=== PATIENT | male | born 1955 | race Caucasian/White ===

== ENCOUNTER 2018-03-06 10:25 | Inpatient (IN) ==
--- NOTE | 2018-03-06 11:08 | Emergency Department Note ---
Disposition Clinical Impression: Pleural effusion, Bronchiolitis, Acute exacerbation of chronic obstructive airways disease Cancer of right lung Qualifiers: Lung location: unspecified part of lung Qualified Code(s): C34.91 - Malignant neoplasm of unspecified part of right bronchus or lung Disposition: Admitted As Inpatient Condition: Good Referrals: Mariangel Traylor DO [Primary Care Provider] - Forms: ED Satisfaction Letter Time of Disposition: 14:14 SOB HPI - General Chief Complaint: ED Shortness of Breath/Dyspnea Stated Complaint: CESILIA Time Seen by Provider: 03/06/18 10:55 Source: patient, family Mode of arrival: ambulatory Limitations: no limitations Nursing Notes Reviewed: Yes Vital Signs Reviewed: Yes - History of Present Illness This is a 62 year-old male with history of HTN, HLD, IDDM, COPD on 2.5 L home O2 (at night), CAD s/p stent, and lung cancer. He presents with dyspnea, which is chronic but has been worsening for the past 2-3 weeks. The shortness of breath is worse with exertion. Associated with productive cough, and chills, no measured fevers. He was seen at [facility] a few weeks ago and completed a course of Levaquin. The lung cancer was diagnosed in 2014, s/p surgery and radiation for brain mets. Last chemo was in 2017. He denies any associated chest pain, unilateral leg pain or swelling. Pt Subjective Complaint: shortness of breath Onset (ago): week(s) (2-3) Severity: moderate Consistency/Duration: gradually worsening Improves with: oxygen, rest Worsens with: exertion Known history of: COPD, other (lung cancer) Associated symptoms: Reports: cough, sputum production. Denies: chest pain, fever, lower extremity pain, hemoptysis Treatment prior to arrival: oxygen, bronchodilator Cough present: Yes Cough Description: Productive Cough Frequency: Intermittent Sputum production: Yes Sputum Amount: Moderate Sputum Color: Green - Related Data Home oxygen amount: CPAP Home Medications Medication Instructions Recorded Confirmed Albuterol Sulfate [Proair Hfa] 1 puff IH Q4H PRN 12/08/15 03/06/18 Citalopram [CeleXA] 40 mg PO DAILY 12/08/15 03/06/18 Fluticasone/Salmeterol [Advair Hfa 8 gm IH BID PRN 12/08/15 03/06/18 230-21 Mcg Inhaler] Furosemide [Lasix] 80 mg PO DAILY 12/08/15 03/06/18 Insulin LISPRO [Humalog] 0 unit SQ AD PRN 12/08/15 03/06/18 Lisinopril [Zestril] 10 mg PO BID 12/08/15 03/06/18 Metoprolol Succinate 100 mg PO BID 12/08/15 03/06/18 Montelukast [Singulair] 10 mg PO DAILY 12/08/15 03/06/18 Multivitamin [Multivitamins] 1 each PO DAILY 12/08/15 03/06/18 Naproxen Sodium [Aleve] 220 mg PO BID PRN 12/08/15 03/06/18 Simvastatin [Zocor] 20 mg PO HS 12/08/15 03/06/18 Tamsulosin [Flomax] 0.4 mg PO DAILY 12/08/15 03/06/18 Insulin Glargine,Hum.rec.anlog 40 units SQ BID 12/15/16 03/06/18 [Tourell Solostar] Dulaglutide [Trulicity] 0.75 mg SQ QWEEK 02/13/17 03/06/18 Empagliflozin [Jardiance] 25 mg PO DAILY 06/08/17 03/06/18 diazePAM [Valium] 5 mg PO BID PRN 06/08/17 03/06/18 HYDROcodone/Acet 10/325 mg [[place]perity 1 - 1.5 tab PO Q6HR PRN 01/18/18 03/06/18 10-325 mg] Previous Rx's Medication Instructions Recorded Esomeprazole Magnesium [Nexium] 40 mg PO DAILY #30 capsule. 03/22/16 Ondansetron [Zofran] 8 mg PO Q8HR #60 tablet 09/05/17 Allergies Allergy/AdvReac Type Severity Reaction Status Date / Time No Known Allergies Allergy Verified 03/06/18 10:30 All systems ED: reviewed and negative except as stated. Constitutional: Reports: chills, weakness (generalized). Denies: fever Cardiovascular: Reports: as per HPI, dyspnea on exertion, edema Respiratory: Reports: as per HPI, cough, dyspnea, sputum production Gastrointestinal: Denies: abdominal pain, vomiting Musculoskeletal: Denies: back pain Neurological: Reports: headache Endocrine: Reports: fatigue Past Medical History - Past Medical History Medical history: Reports: cancer (Lung cancer stage III), COPD, diabetes, hypertension, myocardial infarction Surgical history: Reports: orthopedic, other - Social History Smoking Status: Current every day smoker Smokeless Tobacco Status: No Alcohol use: Reports: none Drug use: Reports: none Physical Exam - General Limitations: no limitations General appearance: alert - Head Head exam: atraumatic, normocephalic - Eye Eye exam: Present: normal appearance - ENT ENT exam: normal exam - Neck Neck exam: Present: normal inspection - Respiratory Respiratory exam: Present: respiratory distress (mild), wheezes, other ( bilateral rhonchi) - Cardiovascular Cardiovascular exam: Present: regular rate, bradycardia - Abdominal Exam Abdominal exam: Present: soft, Non-Tender. Absent: distention - Extremities Exam Extremities exam: Present: pedal edema. Absent: calf tenderness - Neurological Exam Neurological exam: Present: alert, oriented X3. Absent: motor sensory deficit - Psychiatric Psychiatric exam: Present: normal affect, normal mood - Skin Skin exam: Present: warm, dry, intact Course - Reevaluation(s) Reevaluation #1: Patient doing well on bipap. Updated patient and his on diagnostic results. They are in agreement with admission. Time: 14:17 - Consultations Consultation #1: Paged hospitalist Time: 14:17 Consultation #2: Discussed case with Dr. Schwartz, and patient accepted for admission. Time: 14:32 Vital Signs Temperature 98.1 F 03/06/18 10:27 Pulse Rate 57 03/06/18 10:27 Respiratory Rate 18 03/06/18 10:27 Blood Pressure 128/64 03/06/18 10:27 O2 Sat by Pulse Oximetry 90 03/06/18 10:27 Temperature 98.1 F 03/06/18 11:58 Pulse Rate 85 03/06/18 13:23 Respiratory Rate 17 03/06/18 13:23 Blood Pressure 121/64 03/06/18 13:23 O2 Sat by Pulse Oximetry 91 03/06/18 13:23 Oxygen Delivery Oxygen Delivery Bipap Shortness of Breath/Dyspnea - Lab Data Lab results reviewed: Yes I reviewed the patient's lab results. Result diagrams: 03/06/18 10:36 03/06/18 10:36 Lab Results 03/06/18 03/06/18 03/06/18 Range/Units 10:36 10:36 11:00 WBC 8.2 (4.3-11.1) K/mcL RBC 4.92 (4.19-5.50) M/mcL Hgb 15.8 (12.9-16.9) g/dL Hct 47.0 (37.5-50.1) % MCV 95.5 (83.0-100.0) fL MCH 32.1 (28.0-33.3) pg MCHC 33.6 (31.6-35.5) g/dL RDW 14.3 (11.5-14.5) % Plt Count 77 L (140-400) K/mcL MPV 11.5 (9.4-12.4) fL Immature Gran % 0.9 (0-4) % Seg Neutrophils % 84.1 % Lymphocytes % 10.0 % Monocytes % 3.9 % Eosinophils % 0.7 % Basophils % 0.4 % Neutrophils # 6.9 (1.6-8.9) K/mcL Lymphocytes # 0.8 (0.6-4.6) K/mcL Monocytes # 0.3 (0.0-1.3) K/mcL Eosinophils # 0.1 (0.0-0.6) K/mcL Basophils # 0.0 (0.0-0.2) K/mcL Immature Plt Fraction 6.1 (1.1-6.1) % Sodium 139 (136-145) mEq/L Potassium 4.6 (3.5-5.1) mEq/L Chloride 101 (98-107) mEq/L Carbon Dioxide 31 H (23-29) mEq/L BUN 21 (8-23) mg/dL Creatinine 1.22 (0.70-1.30) mg/dL Est GFR ( Amer) > 60 (> 60) Est GFR (Non-Af Amer) 60 (> 60) BUN/Creatinine Ratio 17 (6-26) Glucose 131 H (70-105) mg/dL Calculated Osmolality 293 (280-300) Lactic Acid (0.5-2.2) mmol/L Calcium 9.2 (8.6-10.3) mg/dL Troponin I (< 0.04) ng/mL B-Natriuretic Peptide 212 H (Less than 100) pg/mL 03/06/18 03/06/18 Range/Units 11:09 11:09 WBC (4.3-11.1) K/mcL RBC (4.19-5.50) M/mcL Hgb (12.9-16.9) g/dL Hct (37.5-50.1) % MCV (83.0-100.0) fL MCH (28.0-33.3) pg MCHC (31.6-35.5) g/dL RDW (11.5-14.5) % Plt Count (140-400) K/mcL MPV (9.4-12.4) fL Immature Gran % (0-4) % Seg Neutrophils % % Lymphocytes % % Monocytes % % Eosinophils % % Basophils % % Neutrophils # (1.6-8.9) K/mcL Lymphocytes # (0.6-4.6) K/mcL Monocytes # (0.0-1.3) K/mcL Eosinophils # (0.0-0.6) K/mcL Basophils # (0.0-0.2) K/mcL Immature Plt Fraction (1.1-6.1) % Sodium (136-145) mEq/L Potassium (3.5-5.1) mEq/L Chloride (98-107) mEq/L Carbon Dioxide (23-29) mEq/L BUN (8-23) mg/dL Creatinine (0.70-1.30) mg/dL Est GFR ( Amer) (> 60) Est GFR (Non-Af Amer) (> 60) BUN/Creatinine Ratio (6-26) Glucose (70-105) mg/dL Calculated Osmolality (280-300) Lactic Acid 1.3 (0.5-2.2) mmol/L Calcium (8.6-10.3) mg/dL Troponin I < 0.03 (< 0.04) ng/mL B-Natriuretic Peptide (Less than 100) pg/mL - Radiology Data Radiology results reviewed: Yes I reviewed the patient's radiology results. XR/XR chest 2V IMPRESSION: Vascular congestion. CT/CT angio chest IMPRESSION: No evidence of acute pulmonary embolism. Moderate layering right pleural effusion, increased in size from 01/12/2018. No discrete right lower lobe nodule is evident. There is dependent irregular consolidation in the right lower lobe which may represent (rounded) atelectasis. Continued follow-up is recommended. Bibasilar airway opacification most likely represents mucous plugging. In addition, there are findings of infectious/ inflammatory bronchiolitis particularly involving the left lower lobe. Findings suggest mild interstitial pulmonary edema. Right heart insufficiency. - EKG Data EKG attestation: Yes I reviewed and interpreted this EKG. EKG results narrative: Poor quality tracing. Sinus rhythm with frequent PVCs, bigeminy. No ST elevation or ischemic T wave findings. [place]/QRS: Reports: normal Ectopy: Reports: PVC, bigeminy When compared to previous EKG there are: previous EKG unavailable Interpretation: Reports: nonspecific ST-T wave changes
[2018-03-06] MEDS ORDERED: Isovue-370 500 ML INFUS..BTL IV ONE (11:13)
[2018-03-06 11:27] LABS: Basophils % 0.4 %; Red Cell Distribution Width 14.3 % (11.5-14.5)
[2018-03-06 11:29] LABS: Eosinophils # 0.1 K/mcL (0.0-0.6); Eosinophils % 0.7 %; Hemoglobin 15.8 g/dL (12.9-16.9); Immature Granulocytes % 0.9 % (0-4); Immature Platelets 6.1 % (1.1-6.1); Lymphocytes # 0.8 K/mcL (0.6-4.6); Mean Corpuscular HGB Conc 33.6 g/dL (31.6-35.5); Mean Corpuscular Hemoglobin 32.1 pg (28.0-33.3); Mean Corpuscular Volume 95.5 fL (83.0-100.0); Mean Platelet Volume 11.5 fL (9.4-12.4); Monocytes # 0.3 K/mcL (0.0-1.3); Monocytes % 3.9 %; Neutrophils # 6.9 K/mcL (1.6-8.9); Platelet Count 77 K/mcL (140-400); Red Blood Count 4.92 M/mcL (4.19-5.50); Segmented Neutrophils % 84.1 %
[2018-03-06 11:48] LABS: BUN/Creatinine Ratio 17 (6-26); Blood Urea Nitrogen 21 mg/dL (8-23); Calcium 9.2 mg/dL (8.6-10.3); Carbon Dioxide 31 mEq/L (23-29); Chloride 101 mEq/L (98-107); Glucose 131 mg/dL (70-105); Osmolality,Calculated 293 (280-300); Potassium 4.6 mEq/L (3.5-5.1); Sodium 139 mEq/L (136-145); eGFR For African Americans > 60 (> 60); eGFR For Non-African Americans 60 (> 60)
[2018-03-06] MEDS ORDERED: Ipratropium/Albuterol Neb 3 ML IH ONE (11:50)
[2018-03-06] MEDS ORDERED: Azithromycin 500 MG in D5% in Water 250 ML IVPB ONE (14:13)
[2018-03-06] MEDS ORDERED: cefTRIAXone 2,000 MG in 0.9 % Sodium Chloride Mini Bag 100 ML IVPB ONE (14:13)
[2018-03-06] MEDS ORDERED: Acetaminophen 325 MG TABLET PO PRN (14:26)
[2018-03-06] MEDS ORDERED: Ondansetron 4 MG/2 ML VIAL IVP PRN (14:26)
[2018-03-06] MEDS ORDERED: *HR* OxyCODONE Immed Rel 5 MG TABLET PO PRN (14:26)
[2018-03-06] MEDS ORDERED: *HR* Promethazine 25 MG/ML VIAL IVP PRN (14:26)
[2018-03-06] MEDS ORDERED: Naloxone 0.4 MG/ML INJ IVP PRN (14:26)
[2018-03-06] MEDS ORDERED: Furosemide 40 MG/4 ML VIAL IVP ONE (14:27)
--- NOTE | 2018-03-06 15:09 | IR Procedure Note ---
Date of procedure: 03/06/18 Consent Obtained: Verbal consent, Written consent Timeout: Correct patient and procedure verified, Correct site verified, Time out performed, Skin prep completed Local anesthetic: Lidocaine 1% Indications: Right pleural effusion Procedure Performed: Right thoracentesis Was there an assistant manager quality management present: No Site/Technique: Ultrasound guided right thoracentesis Results/Findings: Thoracentesis performed Estimated blood loss (cc): 2 Complications: None; Tolerated procedure well Post Procedure Treatment Plan: CXR pending Specimen: Moderate pleural effusion
--- NOTE | 2018-03-06 15:23 | Internal Med History&Physical ---
Date of Encounter: 03/06/18 Time of Encounter: 14:45 Internal Medicine - H&P: HPI Chief complaint: Shortness of breath Admitted From: Emergency Dept Plans for Post Hospital Care: Home History of present illness: Mr. Norris is a 62 year old male with known PMH of COPD, Chronic hypoxic resp failure, HTN, HLD , HANNAH uses CPAP, Hypothyroidism, CAD s/p stent, active smoker who had [place] carcinoma of Rt lucinda Dx in 2014 went for Chemo and radiation therapy, also had brain mets now he presented to ER with one week h/o worsening SOB, Cough with greenish expectoration. He also c/o Rt chest wall pain on the lower side. Denied any fever /chills. Denied any recent travel history. Denied any sick contacts at home. Past Med Surg Social Fam HX - Past Medical History Medical history: cancer (Lung cancer stage III), COPD, diabetes, hypertension, myocardial infarction Psychiatric history: no psych history - Past Surgical History Surgical History: orthopedic, other - Social History Smoking Status: Current every day smoker Smokeless Tobacco Status: No Alcohol use: none Drug use: none - Additional Family History Additional family history: Family hsitory reviewed and non contribuitory to current problem. Internal Medicine - H&P: Meds Albuterol Sulfate [Proair Hfa] 1 puff IH Q4H PRN 12/08/15 [History] Citalopram [CeleXA] 40 mg PO DAILY 12/08/15 [History] Fluticasone/Salmeterol [Advair Hfa 230-21 Mcg Inhaler] 8 gm IH BID PRN 12/08/15 [History] Furosemide [Lasix] 80 mg PO DAILY 12/08/15 [History] Insulin LISPRO [Humalog] 8 - 16 unit SQ TID PRN 12/08/15 [History] Metoprolol Succinate 100 mg PO BID 12/08/15 [History] Montelukast [Singulair] 10 mg PO DAILY 12/08/15 [History] Multivitamin [Multivitamins] 1 each PO DAILY 12/08/15 [History] Naproxen Sodium [Aleve] 220 mg PO BID PRN 12/08/15 [History] Simvastatin [Zocor] 20 mg PO HS 12/08/15 [History] Tamsulosin [Flomax] 0.4 mg PO DAILY 12/08/15 [History] Esomeprazole Magnesium [Nexium] 40 mg PO DAILY #30 capsule. 03/22/16 [Rx] Insulin Glargine,Hum.rec.anlog [Tourell Solostar] 40 units SQ BID 12/15/16 [ History] Dulaglutide [Trulicity] 0.75 mg SQ QWEEK 02/13/17 [History] diazePAM [Valium] 5 mg PO BID PRN 06/08/17 [History] Ondansetron [Zofran] 8 mg PO Q8HR #60 tablet 09/05/17 [Rx] HYDROcodone/Acet 10/325 mg [Onyx 10-325 mg] 1 - 1.5 tab PO Q6HR PRN 01/18/18 [ History] Empagliflozin [Jardiance] 10 mg PO DAILY 03/06/18 [History] Lisinopril [Zestril] 20 mg PO DAILY 03/06/18 [History] Spironolactone [Aldactone] 25 mg PO DAILY 03/06/18 [History] 3 Allergy/AdvReac Type Severity Reaction Status Date / Time No Known Allergies Allergy Verified 03/06/18 10:30 All Systems PM: A 10-system review of systems was performed and is negative for pertinent findings except as documented above in the HPI. Review of systems: All the systems are reviewed everything is benign except the systems and symptoms I mentioned in the history of present illness - Constitutional Vitals: Temp Pulse Resp BP Pulse Ox 98.1 F 85 17 121/64 91 03/06/18 11:58 03/06/18 13:23 03/06/18 13:23 03/06/18 13:23 03/06/18 13:23 General appearance: Present: mild distress, A&O X 3 - Head Head exam: Present: atraumatic, normal inspection - Neck Neck exam general surgery: Present: supple - Respiratory Respiratory exam: Present: decreased breath sounds, rales, respiratory distress , wheezes (moderate to severe). Absent: rhonchi - Cardiovascular Cardiovascular exam: Present: RRR, +S1, +S2. Absent: tachycardia - GI/Abdominal GI/Abdominal exam: Present: normal bowel sounds, soft. Absent: rebound, rigid, tenderness - Extremities Exam Extremities exam: Present: pedal edema (trace). Absent: calf tenderness, tenderness - Back Exam Back exam: Absent: CVA tenderness (L), CVA tenderness (R) - Neurological Exam Neurological exam: Present: alert, oriented X3 - Psychiatric Psychiatric exam: Present: anxious - Skin Skin exam: Absent: rash Internal Med - H&P Results - Labs CBC & Chem 7: 03/06/18 10:36 03/06/18 10:36 Labs: Short CBC 03/06/18 Range/Units 10:36 WBC 8.2 (4.3-11.1) K/mcL Hgb 15.8 (12.9-16.9) g/dL Hct 47.0 (37.5-50.1) % Plt Count 77 L (140-400) K/mcL Neutrophils # 6.9 (1.6-8.9) K/mcL BMP 03/06/18 10:36 Sodium 139 Potassium 4.6 Chloride 101 Carbon Dioxide 31 H BUN 21 Creatinine 1.22 Glucose 131 H Calcium 9.2 Cardiac Enzymes 03/06/18 Range/Units 11:09 Troponin I < 0.03 (< 0.04) ng/mL - Impressions ITS Impressions Chest X-Ray 03/06/18 10:36 IMPRESSION: Vascular congestion. D/ / 03/06/2018 11:37:08 Jimbo Andre MD / curtis Interpreting Provider: Jimbo Andre MD Chest CTA 03/06/18 11:13 IMPRESSION: No evidence of acute pulmonary embolism. Moderate layering right pleural effusion, increased in size from 01/12/2018. No discrete right lower lobe nodule is evident. There is dependent irregular consolidation in the right lower lobe which may represent (rounded) atelectasis. Continued follow-up is recommended. Bibasilar airway opacification most likely represents mucous plugging. In addition, there are findings of infectious/ inflammatory bronchiolitis particularly involving the left lower lobe. Findings suggest mild interstitial pulmonary edema. Right heart insufficiency. D/ / Jonny Chase MD / Jonny Chase MD Interpreting Provider: Jonny Chase MD - Assessment and plan (1) Acute on chronic respiratory failure with hypoxia Current Visit: Yes Status: Acute Assessment and plan: Admit the pt into Tele Due to his Rt pleural effusion and Bronchiolitis Will check Strep PNA, Legionella, Sputum cx and Resp viral panel started on empirical abx Levaquin (2) Acute exacerbation of chronic obstructive airways disease Current Visit: Yes Status: Acute Assessment and plan: started him on high dose IV steroids Duoneb Use CPAP as needed during day time and continous at bed time (3) Bronchiolitis Current Visit: Yes Status: Acute Assessment and plan: Mostly bacterial started him on Levaquin (4) Pleural effusion Current Visit: Yes Status: Acute Assessment and plan: mostly due to lung cancer IR consulted for thoracentesis Lasix 20 IV BID will get 2 D Echo Pleural fluid analysis ordered (5) Cancer of right lung Current Visit: Yes Status: Chronic Assessment and plan: Pt stated he finished his chemo and radio therapy will check his pleural fluid analysis - depending on that will consult Heme Onc Qualifiers: Lung location: unspecified part of lung Qualified Code(s): C34.91 - Malignant neoplasm of unspecified part of right bronchus or lung (6) Thrombocytopenia Current Visit: No Status: Chronic Assessment and plan: chronic cont close monitoring (7) HANNAH (obstructive sleep apnea) Current Visit: Yes Status: Acute Assessment and plan: on CPAP (8) Tobacco dependence Current Visit: Yes Status: Acute Assessment and plan: Counseled to quit smoking placed on nicotine patch - Time Spent With Patient Total time spent is greater than 50% in coordination of care (as documented) at patient's floor/unit and/or counseling patient:
[2018-03-06] MEDS: Ipratropium/Albuterol Neb 3 ML IH SCH ×3 (15:46→23:50)
[2018-03-06] MEDS: *HR* HYDROcodone/Acet 5/325 mg TABLET PO PRN (15:50)
[2018-03-06 15:52] LABS: ABG Base Excess 5 mEq/L (-2 to 3); ABG HCO3 32 mEq/L (21-27); ABG Oxygen Saturation 95 % (95-98); ABG PCO2 57 mmHg (35-45); ABG PH 7.36 pH Units (7.32-7.45); ABG PO2 80 mmHg (85-104); ABG TCO2 34 mEq/L (20-26)
[2018-03-06] MEDS: Levofloxacin 500 MG/100 ML 500 MG/100 ML BAG IVPB SCH (16:56)
[2018-03-06] MEDS: MethylPREDNISolone 40 MG/ML VIAL IVP SCH (17:00)
[2018-03-06 20:10] LABS: Adenovirus Not Detected (Not Detect); Bordetella Pertussis Not Detected (Not Detect); Chlamydophila pneumoniae Not Detected (Not Detect); Coronavirus 229E Not Detected (Not Detect); Coronavirus HKU1 Not Detected (Not Detect); Coronavirus NL63 Not Detected (Not Detect); Coronavirus OC43 Not Detected (Not Detect); Human Metapneumovirus Not Detected (Not Detect); Human Rhinovirus/Enterovirus Not Detected (Not Detect); Influenza A Subtype 2009 H1 Not Detected (Not Detect); Influenza A Untypeable Not Detected (Not Detect); Influenza B Not Detected (Not Detect); Mycoplasma pneumoniae Not Detected (Not Detect); Parainfluenza Virus 1 Not Detected (Not Detect); Parainfluenza Virus 2 Not Detected (Not Detect); Parainfluenza Virus 3 Not Detected (Not Detect); Parainfluenza Virus 4 Not Detected (Not Detect); Respiratory Syncytial Virus Not Detected (Not Detect)
[2018-03-06] MEDS: Nicotine 21 MG PATCH.TD24 TD SCH (22:07)
[2018-03-07] MEDS: MethylPREDNISolone 40 MG/ML VIAL IVP SCH ×5 (00:53→23:07)
[2018-03-07] MEDS: Ipratropium/Albuterol Neb 3 ML IH SCH ×6 (04:29→23:40)
[2018-03-07 04:35] LABS: Basophils % 0.1 %; Lymphocytes % 3.2 %; Red Blood Count 4.87 M/mcL (4.19-5.50)
[2018-03-07 04:37] LABS: Hematocrit 45.9 % (37.5-50.1); Hemoglobin 15.5 g/dL (12.9-16.9); Immature Granulocytes % 0.9 % (0-4); Lymphocytes # 0.3 K/mcL (0.6-4.6); Mean Corpuscular HGB Conc 33.8 g/dL (31.6-35.5); Mean Corpuscular Hemoglobin 31.8 pg (28.0-33.3); Mean Corpuscular Volume 94.3 fL (83.0-100.0); Mean Platelet Volume 11.4 fL (9.4-12.4); Monocytes # 0.1 K/mcL (0.0-1.3); Monocytes % 0.8 %; Neutrophils # 8.5 K/mcL (1.6-8.9); Red Cell Distribution Width 14.1 % (11.5-14.5)
[2018-03-07 04:40] LABS: Platelet Count 72 K/mcL (140-400)
[2018-03-07 04:51] LABS: Alanine Aminotransferase 18 Units/L (7-52); Albumin/Globulin Ratio 1.5 (1.1-2.2); Alkaline Phosphatase 92 Units/L (34-104); Aspartate Amino Transferase 13 Units/L (13-39); BUN/Creatinine Ratio 19 (6-26); Bilirubin,Total 0.5 mg/dL (0.3-1.0); Blood Urea Nitrogen 25 mg/dL (8-23); Calcium 9.3 mg/dL (8.6-10.3); Carbon Dioxide 29 mEq/L (23-29); Chloride 95 mEq/L (98-107); Globulin 2.7 g/dL (2.4-3.5); Glucose 330 mg/dL (70-105); Lactate Dehydrogenase 151 Units/L (140-271); Osmolality,Calculated 291 (280-300); Potassium 4.9 mEq/L (3.5-5.1); Sodium 132 mEq/L (136-145); Total Protein 6.7 g/dL (6.4-8.9); eGFR For African Americans > 60 (> 60); eGFR For Non-African Americans 56 (> 60)
[2018-03-07 04:52] LABS: BUN/Creatinine Ratio 19 (6-26); Blood Urea Nitrogen 25 mg/dL (8-23); Calcium 9.3 mg/dL (8.6-10.3); Carbon Dioxide 30 mEq/L (23-29); Chloride 96 mEq/L (98-107); Chol/HDL Ratio 4.5 (0-4.9); Cholesterol 162 mg/dL (< 200); Glucose 323 mg/dL (70-105); HDL Cholesterol 36 mg/dL (40-59); LDL Cholesterol,Calculated 91 mg/dL (0-99); Osmolality,Calculated 293 (280-300); Potassium 4.9 mEq/L (3.5-5.1); Sodium 133 mEq/L (136-145); Triglycerides 175 mg/dL (< 150); eGFR For African Americans > 60 (> 60); eGFR For Non-African Americans 56 (> 60)
[2018-03-07] MEDS ORDERED: *HR* Enoxaparin 40 MG/0.4 ML SYRINGE SQ SCH (06:00)
[2018-03-07] MEDS: Nicotine 21 MG PATCH.TD24 TD SCH (09:14)
[2018-03-07] MEDS ORDERED: Albuterol 2.5 MG/3 ML NEBULIZER IH PRN (09:41)
[2018-03-07] MEDS ORDERED: D5% in Water 1,000 ML IVC PRN (09:44)
[2018-03-07] MEDS ORDERED: *HR* Dextrose 50 % in Water (Syg) 50 ML SYRINGE IVP PRN (09:44)
[2018-03-07] MEDS ORDERED: Dextrose Gel 15 GM/37.5 ML TUBE PO PRN ×2 (09:44)
[2018-03-07] MEDS: Insulin DETEMIR 100 UNIT/ML X5UNITS SQ SCH ×2 (10:55→22:20)
--- NOTE | 2018-03-07 11:10 | Electrocardiograph Report ---
[facility] [place] Test Date: 2018-03-06 Pat Name: Tre Norris Department: 104 Room: 2A47 Gender: M Pharmacy Grad Intern: : 1955 Requested By: Erick Euceda Order Number: [id number] Reading MD: Wild Ochoa Measurements Intervals [place] Rate: 89 P: 50 IA: 170 QRS: 76 QRSD: 94 T: 62 QT: 356 QTc: 403 Interpretive Statements SINUS RHYTHM WITH FREQUENT VENTRICULAR PREMATURE COMPLEXES ABNORMAL RHYTHM ECG Electronically Signed On 03-07-2018 11:08:54 EDT by Wild Ochoa
[2018-03-07] MEDS: Insulin LISPRO 300 UNITS/3 ML VIAL SQ SCH ×2 (11:46→16:44)
--- NOTE | 2018-03-07 13:05 | Internal Med Progress Note ---
Date of Encounter: 03/07/18 Time of Encounter: 11:00 - Assessment and plan (1) Cancer of right lung Current Visit: Yes Status: Chronic Assessment and plan: Pt stated he finished his chemo and radio therapy pleural fluid work up is pending Qualifiers: Lung location: unspecified part of lung Qualified Code(s): C34.91 - Malignant neoplasm of unspecified part of right bronchus or lung (2) Thrombocytopenia Current Visit: Yes Status: Chronic Assessment and plan: chronic cont close monitoring (3) Pleural effusion Current Visit: Yes Status: Acute Assessment and plan: mostly due to lung cancer s/p thoracentensis by IR Lasix 20 IV BID will get 2 D Echo Pleural fluid analysis ordered, will follow (4) Bronchiolitis Current Visit: Yes Status: Acute Assessment and plan: Continue levaquin (5) Acute exacerbation of chronic obstructive airways disease Current Visit: Yes Status: Acute Assessment and plan: Continue duonebs, steroids, CPAP as needed during day time and continous at bed time (6) Acute on chronic respiratory failure with hypoxia Current Visit: Yes Status: Acute Assessment and plan: Sputum culure prelim negative Legionella ans Trep Ag negative Viral panel negative Continue levaquin (7) HANNAH (obstructive sleep apnea) Current Visit: Yes Status: Chronic Assessment and plan: on CPAP (8) Tobacco dependence Current Visit: Yes Status: Chronic Assessment and plan: Counseled to quit smoking placed on nicotine patch - Time Spent With Patient Total time spent is greater than 50% in coordination of care (as documented) at patient's floor/unit and/or counseling patient: - Subjective Interval history: Seen and examined at bedside with family Reports some improvement in breathing FS uncontrolled,due to steroids, home meds resumed - Constitutional Vitals: Temp Pulse Resp BP Pulse Ox 97.5 F L 103 16 119/73 98 03/07/18 11:26 03/07/18 11:26 03/07/18 11:26 03/07/18 11:26 03/07/18 11:26 General appearance: Present: A&O X 3, pleasant, no acute distress, obese - Head Head exam: Present: atraumatic, normocephalic - Eye Eye exam: Present: PERRL, conjuntiva pink, sclera anicteric Pupils: Present: PERRL - Neck Neck exam general surgery: Present: supple, trachea midline. Absent: lymphadenopathy - Respiratory Respiratory exam: Present: decreased breath sounds - Cardiovascular Cardiovascular exam: Present: RRR, +S1, +S2. Absent: diastolic murmur, gallop, rubs, systolic murmur - GI/Abdominal GI/Abdominal exam: Present: normal bowel sounds, soft, no peritoneal signs. Absent: distended, tenderness - Extremities Exam Extremities exam: Present: warm, radial pulses palpable and symmetrical. Absent : calf tenderness, cyanotic, pedal edema - Neurological Exam Neurological exam: Present: alert, CN II-XII intact, oriented X3, no focal deficits. Absent: pronater drift, facial droop, speech deficit - Skin Skin exam: Present: dry, intact Internal Medicine: Result - Labs CBC & Chem 7: 03/07/18 03:52 03/07/18 03:52 Labs: Short CBC 03/07/18 Range/Units 03:52 WBC 8.9 (4.3-11.1) K/mcL Hgb 15.5 (12.9-16.9) g/dL Hct 45.9 (37.5-50.1) % Plt Count 72 L (140-400) K/mcL Neutrophils # 8.5 (1.6-8.9) K/mcL BMP 03/07/18 03/07/18 03:52 03:52 Sodium 133 L 132 L Potassium 4.9 4.9 Chloride 96 L 95 L Carbon Dioxide 30 H 29 BUN 25 H 25 H Creatinine 1.30 1.30 Glucose 323 H 330 H Calcium 9.3 9.3 Liver Function 03/07/18 Range/Units 03:52 Total Bilirubin 0.5 (0.3-1.0) mg/dL AST 13 (13-39) Units/L ALT 18 (7-52) Units/L Alkaline Phosphatase 92 (34-104) Units/L Albumin 4.0 (3.5-5.7) g/dL - ABG Interpretation ABG results: ABG ABG pH 7.36 pH Units (7.32-7.45) 03/06/18 15:48 ABG pCO2 57 mmHg (35-45) H 03/06/18 15:48 ABG pO2 80 mmHg (85-104) L 03/06/18 15:48 ABG O2 Saturation 95 % (95-98) 03/06/18 15:48 - Impressions Impressions Chest X-Ray 03/06/18 15:07 IMPRESSION: Tiny bilateral pleural effusions with associated mild pulmonary vascular congestion. No evidence of pneumothorax. D/ / 03/06/2018 16:22:45 Arnoldo Álvarez MD / Noreen Gallagher Interpreting Provider: Arnoldo Álvarez MD Consult Discharge Plan - Plan Referrals: Mariangel Traylor DO [Primary Care Provider] -
[2018-03-07] MEDS: Levofloxacin 500 MG/100 ML 500 MG/100 ML BAG IVPB SCH (14:19)
[2018-03-07] MEDS ORDERED: *HR* Metoprolol 5 MG/5 ML VIAL IVP ONE (18:36)
[2018-03-07] MEDS: Metoprolol XL (24 HR) Succ 50 MG TAB.ER.24H PO SCH ×2 (18:46→21:00)
[2018-03-07] MEDS ORDERED: Metoprolol XL (24 HR) Succ 50 MG TAB.ER.24H PO SCH (21:00)
[2018-03-07] MEDS ORDERED: Insulin LISPRO 300 UNITS/3 ML VIAL SQ SCH (21:00)
[2018-03-07] MEDS: *HR* HYDROcodone/Acet 5/325 mg TABLET PO PRN (22:30)
[2018-03-08] MEDS: Ipratropium/Albuterol Neb 3 ML IH SCH ×3 (03:55→10:58)
[2018-03-08] MEDS: MethylPREDNISolone 40 MG/ML VIAL IVP SCH (05:35)
[2018-03-08] MEDS: Insulin LISPRO 300 UNITS/3 ML VIAL SQ SCH (08:29)
[2018-03-08] MEDS: Insulin DETEMIR 100 UNIT/ML X5UNITS SQ SCH (08:31)
[2018-03-08] MEDS: Metoprolol XL (24 HR) Succ 50 MG TAB.ER.24H PO SCH (08:31)
[2018-03-08] MEDS: Nicotine 21 MG PATCH.TD24 TD SCH (08:32)
--- NOTE | 2018-03-08 10:46 | Discharge Summary ---
- NOTES TO OUTPATIENT PROVIDER Notes to Outpatient Provider: admitted for COPDE, bronchiolitis and R pleural effusion. Discharged home on steroids and antibiotics, no change in home meds Orders not resulted at time of discharge: Pending orders 03/06/18 15:06 Albumin,Pleural Fluid [BF] Stat Cell Count w Diff, Pleural Fld [BF] Stat Glucose,Pleural Fluid [BF] Stat LDH,Pleural Fluid [BF] Stat Total Protein,Pleural Fluid [BF] Stat pH,Pleural Fluid [BF] Stat Date of Encounter: 03/08/18 Time of Encounter: 10:44 - Discharge Diagnosis (1) Cancer of right lung Priority: Secondary Status: Chronic Qualifiers: Lung location: unspecified part of lung Qualified Code(s): C34.91 - Malignant neoplasm of unspecified part of right bronchus or lung (2) Thrombocytopenia Priority: Secondary Status: Chronic (3) Pleural effusion Priority: Primary Status: Resolved (4) Bronchiolitis Priority: Primary Status: Acute (5) Acute exacerbation of chronic obstructive airways disease Priority: Primary Status: Acute (6) Acute on chronic respiratory failure with hypoxia Priority: Primary Status: Acute (7) HANNAH (obstructive sleep apnea) Priority: Secondary Status: Chronic (8) Tobacco dependence Priority: Secondary Status: Chronic Hospital course: Mr. Norris is a 62 year old male with known PMH of COPD, Chronic hypoxic resp failure, HTN, HLD , HANNAH uses CPAP, Hypothyroidism, CAD s/p stent, active smoker who had [place] carcinoma of Rt lucinda Dx in 2014 went for Chemo and radiation therapy, also had brain mets who presented to [facility] ER with one week h/o worsening SOB, Cough with greenish expectoration. He also c/o Rt chest wall pain on the lower side. Denied any fever /chills. Denied any recent travel history. Denied any sick contacts at home. Workup in the ER revealed bibasilar opacification with findings of infectious/ inflammatory bronchiolitis, mild pulmonary edema, moderate right pleural effusion. Degenerative antigen, streptococcal antigen, sputum culture unremarkable. Complete blood count, chemistry, and ABG unremarkable. Respiratory panel was negative. He had hyperglycemia upon presentation. He was admitted, interventional radiologist consulted for drainage of pleural effusion, patient's symptoms improved promptly afterwards, he was also started on empiric antibiotics for bronchiolitis, steroids and duonebs for COPDE. His O2 saturation has improved to his baseline. The patient is also on CPAP at home for HANNAH. He is seen and examined this morning at the bedside, denies new complaints, reports improvement in breathing, ambulatory, without distress, and is medically stable to be discharged home on steroids and antibiotics for 4 more days. Follow-up with primary care physician, oncologist. Plan of care discussed, verbalizes understanding. Tobacco cessation counseling done for 3 minutes. Discharge discussed with: patient, nurse, case management - Time Spent with Patient Total time spent providing and/or coordinating discharge services: Greater than 30 minutes - Discharge Medications Home Medications: Albuterol Sulfate [Proair Hfa] 1 puff IH Q4H PRN 12/08/15 [History] Citalopram [CeleXA] 40 mg PO DAILY 12/08/15 [History] Fluticasone/Salmeterol [Advair Hfa 230-21 Mcg Inhaler] 8 gm IH BID PRN 12/08/15 [History] Furosemide [Lasix] 80 mg PO DAILY 12/08/15 [History] Insulin LISPRO [Humalog] 8 - 16 unit SQ TID PRN 12/08/15 [History] Metoprolol Succinate 100 mg PO BID 12/08/15 [History] Montelukast [Singulair] 10 mg PO DAILY 12/08/15 [History] Multivitamin [Multivitamins] 1 each PO DAILY 12/08/15 [History] Naproxen Sodium [Aleve] 220 mg PO BID PRN 12/08/15 [History] Simvastatin [Zocor] 20 mg PO HS 12/08/15 [History] Tamsulosin [Flomax] 0.4 mg PO DAILY 12/08/15 [History] Esomeprazole Magnesium [Nexium] 40 mg PO DAILY #30 capsule. 03/22/16 [Rx] Insulin Glargine,Hum.rec.anlog [Toujeo Solostar] 40 units SQ BID 12/15/16 [ History] Dulaglutide [Trulicity] 0.75 mg SQ QWEEK 02/13/17 [History] diazePAM [Valium] 5 mg PO BID PRN 06/08/17 [History] Ondansetron [Zofran] 8 mg PO Q8HR #60 tablet 09/05/17 [Rx] HYDROcodone/Acet 10/325 mg [[place] 10-325 mg] 1 - 1.5 tab PO Q6HR PRN 01/18/18 [ History] Empagliflozin [Jardiance] 10 mg PO DAILY 03/06/18 [History] Lisinopril [Zestril] 20 mg PO DAILY 03/06/18 [History] Spironolactone [Aldactone] 25 mg PO DAILY 03/06/18 [History] Allergies/Adverse Reactions: 3 Allergy/AdvReac Type Severity Reaction Status Date / Time No Known Allergies Allergy Verified 03/06/18 10:30 Date of admission: 03/06/18 14:43 Primary care physician: Mariangel Traylor Discharging clinician: Marko Khalil Anticipated date of discharge: 03/08/18 - Constitutional Vitals: Temp Pulse Resp BP Pulse Ox 97.6 F 84 15 129/70 91 03/08/18 06:53 03/08/18 06:53 03/08/18 07:53 03/08/18 06:53 03/08/18 09:06 General appearance: Present: A&O X 3, pleasant, no acute distress, obese - Head Head exam: Present: atraumatic, normocephalic - Eye Eye exam: Present: PERRL, conjuntiva pink, sclera anicteric Pupils: Present: PERRL - Neck Neck exam general surgery: Present: supple, trachea midline. Absent: lymphadenopathy - Respiratory Respiratory exam: Present: decreased breath sounds. Absent: stridor, wheezes, tachypnea - Cardiovascular Cardiovascular exam: Present: RRR, +S1, +S2. Absent: diastolic murmur, gallop, rubs, systolic murmur - GI/Abdominal GI/Abdominal exam: Present: normal bowel sounds, soft, no peritoneal signs. Absent: distended, tenderness - Extremities Exam Extremities exam: Present: warm, radial pulses palpable and symmetrical. Absent : calf tenderness, cyanotic, pedal edema - Neurological Exam Neurological exam: Present: alert, CN II-XII intact, oriented X3, no focal deficits. Absent: pronater drift, facial droop, speech deficit - Skin Skin exam: Present: dry, intact - Patient Status Disposition: Home, Self-Care Condition: Good Functional capacity at discharge: independent ambulation Overall status at discharge: patient is progressing back to baseline - Discharge Instructions Follow Up With: Mariangel Traylor DO [Primary Care Provider] - - Diet and Activity Activity: resume usual activities as tolerated, wear oxygen at night Diet: diabetic diet, low salt diet - VTE Documentation of Mechanical Device: Intermittent pneumatic compression device
[2018-03-08 11:30] VITALS: BP 121/75
== END 2018-03-08 11:38 | disposition home or self-care (01) | DRG 180 ==
LOC: EMEROO 10:25 → 2ANU 10:25 → SUATTDRO 14:43 → 2ANU 15:59
PROVIDERS: ADMIT Family Medicine; ATTEND Internal Medicine